=== PATIENT | female | born 1960 | race Caucasian/White ===

== ENCOUNTER → 2016-10-09 | Outpatient (CLI) | payer BC ==
[2016-10-09 07:02] LABS: Basophils # (auto) 0.1 uL; Basophils % (auto) 0.9 % (0.0-2.0); Eosinophils # (auto) 0.2 uL; Eosinophils % (auto) 3.8 % (0.0-7.0); Hematocrit 44.8 % (36.0-46.0); Hemoglobin 14.8 g/dL (12.2-16.2); Mean Corpuscular Volume 87.9 fL (80.0-100.0); Mean Platelet Volume 9.2 fL (7.4-10.4); Monocytes # (auto) 0.4 uL; Monocytes % (auto) 6.4 % (0.0-12.0); Neutrophils # (auto) 3.1 uL; Neutrophils % (auto) 53.9 % (37.0-80.0); Platelet Count (auto) 317 10^3/uL (140-450); Red Cell Distribution Width 13.3 % (11.6-16.0); White Blood Cell 5.8 10^3/uL (4.4-10.8)
[2016-10-09 07:10] LABS: Urine Bilirubin Negative (Negative); Urine Blood Negative /uL (Negative); Urine Color Yellow (Yellow); Urine Glucose Normal (Normal); Urine Ketone Negative (Negative); Urine Mucus FEW (None Seen); Urine Nitrite Negative (Negative); Urine RBC <1 /hpf (0 - 4); Urine Squamous Epithelial Cell FEW /hpf (<5); Urine Urobilinogen Normal (Negative); Urine pH 5.5 (5.0-8.0)
[2016-10-09 07:50] LABS: Cholesterol 208 mg/dL (< 200); HDL Cholesterol 47 mg/dL (40-59); LDL Cholesterol 165 mg/dL (< 100); Triglycerides 182 mg/dL (< 150)
== END | disposition home or self-care (01) ==
LOC: LAB 06:31
PROVIDERS: ATTEND Internal Medicine
DX: Z00.00 Encounter for general adult medical examination without abnormal findings (principal); I10 Essential (primary) hypertension; E78.5 Hyperlipidemia, unspecified; E11.9 Type 2 diabetes mellitus without complications; E55.9 Vitamin D deficiency, unspecified
CPT/HCPCS: 36415; 80061; 81001; 82306; 83036; 84443; 85025